=== PATIENT | female | born 1995 | race Caucasian/White ===

== ENCOUNTER 2020-04-05 16:38 | Inpatient (IN) | payer BC ==
[2020-04-05 17:38] VITALS: BMI 28.1
[2020-04-05] MEDS ORDERED: MAGNESIUM HYDROX 2400MG/30ML ORAL SUSPENSION 30 ML CUP PO PRN (21:36)
[2020-04-05] MEDS ORDERED: IBUPROFEN 400 MG TABLET (FP) PO PRN (21:36)
[2020-04-05] MEDS ORDERED: BISMUTH SUBSALICYLATE 524 MG/30 ML UD PO PRN (21:36)
[2020-04-05] MEDS ORDERED: MAGNESIUM CITRATE 300 ML BOTTLE PO PRN (21:36)
[2020-04-05] MEDS ORDERED: ONDANSETRON *ODT* 4 MG TABLET SL PRN (21:36)
[2020-04-05] MEDS ORDERED: ACETAMINOPHEN 325 MG TABLET (FP) PO PRN ×2 (21:36)
[2020-04-05] MEDS ORDERED: MAG HYDROX/AL HYDROX/SIMETH 30 ML UNIT-DOSE CUP PO PRN (21:36)
[2020-04-05] MEDS ORDERED: chlordiazePOXIDE HCL 25 MG CAPSULE PO PRN (21:36)
[2020-04-05] MEDS ORDERED: MENTHOL/PHENOL 1 EACH UD MM PRN (21:36)
[2020-04-05] MEDS ORDERED: MELATONIN 5 MG TABLETS PO SCH (22:00)
[2020-04-05] MEDS: THIAMINE HCL 100 MG TABLET (FP) PO SCH (23:23)
[2020-04-05] MEDS: chlordiazePOXIDE HCL 25 MG CAPSULE PO SCH (23:23)
[2020-04-06] MEDS: chlordiazePOXIDE HCL 25 MG CAPSULE PO SCH ×4 (06:22→22:28)
[2020-04-06] MEDS: NICOTINE POLACRILEX 2 MG GUM BUC PRN ×3 (06:24→17:04)
[2020-04-06] MEDS: NICOTINE 21 MG/24 HOURS TOPICAL PATCH TD SCH (10:18)
[2020-04-06] MEDS: PRENATAL VITAMINS W/ FOLIC ACID TABLET (FP) PO SCH (10:18)
[2020-04-06 12:02] LABS: HEMATOCRIT 40.3 % (32.4-45.2); HEMOGLOBIN 13.5 GM/dL (10.7-15.3); MCH 29.5 pg (25.7-33.7); MCHC 33.5 g/dl (32.0-36.0); MEAN PLT VOLUME 8.5 fl (7.5-11.1); PLATELET COUNT 294 K/MM3 (134-434); RBC 4.58 M/mm3 (3.60-5.2); RDW 13.1 % (11.6-15.6); WHITE BLOOD COUNT 7.4 K/mm3 (4.0-10.0)
[2020-04-06] MEDS: DULoxetine HCL 60 MG CAPSULE.DR PO SCH (12:04)
[2020-04-06 12:14] LABS: ALBUMIN 3.8 g/dl (3.4-5.0); BLOOD UREA NITROGEN 15.3 mg/dL (7-18); CALCIUM 8.9 mg/dL (8.5-10.1)
[2020-04-06 12:17] LABS: CREATININE 0.9 mg/dL (0.55-1.3)
[2020-04-06 12:19] LABS: BILIRUBIN,TOTAL 1.4 mg/dL (0.2-1); TOT PROT 6.9 g/dl (6.4-8.2)
[2020-04-06] MEDS: GABAPENTIN 100 MG CAPSULE PO SCH ×2 (13:08→22:27)
[2020-04-06] MEDS ORDERED: MASKS NR ONE (16:51)
[2020-04-06] MEDS ORDERED: QUEtiapine FUMARATE 100 MG TABLET (FP) PO SCH (22:00)
[2020-04-06] MEDS: THIAMINE HCL 100 MG TABLET (FP) PO SCH (22:27)
[2020-04-06] MEDS: MIRTAZAPINE 30 MG TABLET PO SCH (22:27)
[2020-04-06] MEDS: QUEtiapine FUMARATE 50 MG TABLET PO PRN (22:30)
[2020-04-07] MEDS: GABAPENTIN 100 MG CAPSULE PO SCH ×3 (05:57→22:05)
[2020-04-07] MEDS: chlordiazePOXIDE HCL 25 MG CAPSULE PO SCH ×4 (05:57→22:04)
[2020-04-07] MEDS: NICOTINE POLACRILEX 2 MG GUM BUC PRN ×3 (08:40→14:22)
[2020-04-07] MEDS: METHOCARBAMOL 500 MG TABLET PO PRN ×2 (10:23→17:39)
[2020-04-07] MEDS: PRENATAL VITAMINS W/ FOLIC ACID TABLET (FP) PO SCH (10:24)
[2020-04-07] MEDS: NICOTINE 21 MG/24 HOURS TOPICAL PATCH TD SCH (10:24)
[2020-04-07] MEDS: DULoxetine HCL 60 MG CAPSULE.DR PO SCH (10:24)
[2020-04-07] MEDS: MIRTAZAPINE 30 MG TABLET PO SCH (22:04)
[2020-04-07] MEDS: THIAMINE HCL 100 MG TABLET (FP) PO SCH (22:05)
[2020-04-07] MEDS: QUEtiapine FUMARATE 50 MG TABLET PO PRN (22:09)
[2020-04-08] MEDS ORDERED: chlordiazePOXIDE HCL 10 MG CAPSULE PO PRN
[2020-04-08] MEDS: GABAPENTIN 100 MG CAPSULE PO SCH ×3 (06:13→22:08)
[2020-04-08] MEDS: chlordiazePOXIDE HCL 10 MG CAPSULE PO SCH ×4 (06:13→22:05)
[2020-04-08] MEDS: NICOTINE POLACRILEX 2 MG GUM BUC PRN ×2 (06:16→10:12)
[2020-04-08] MEDS: DULoxetine HCL 60 MG CAPSULE.DR PO SCH (10:11)
[2020-04-08] MEDS: NICOTINE 21 MG/24 HOURS TOPICAL PATCH TD SCH (10:12)
[2020-04-08] MEDS: PRENATAL VITAMINS W/ FOLIC ACID TABLET (FP) PO SCH (11:11)
[2020-04-08] MEDS: NICOTINE POLACRILEX 4 MG GUM BUC PRN ×3 (13:06→17:51)
[2020-04-08] MEDS: METHOCARBAMOL 500 MG TABLET PO PRN ×2 (13:36→19:18)
[2020-04-08] MEDS: QUEtiapine FUMARATE 50 MG TABLET PO PRN (22:04)
[2020-04-08] MEDS: THIAMINE HCL 100 MG TABLET (FP) PO SCH (22:04)
[2020-04-08] MEDS: MIRTAZAPINE 30 MG TABLET PO SCH (22:04)
[2020-04-09] MEDS: METHOCARBAMOL 500 MG TABLET PO PRN ×2 (04:15→12:24)
[2020-04-09] MEDS: chlordiazePOXIDE HCL 10 MG CAPSULE PO SCH ×2 (05:41→17:57)
[2020-04-09] MEDS: GABAPENTIN 100 MG CAPSULE PO SCH (05:41)
[2020-04-09] MEDS: NICOTINE POLACRILEX 4 MG GUM BUC PRN ×6 (05:43→21:26)
[2020-04-09] MEDS ORDERED: MIRTAZAPINE 30 MG TABLET PO SCH (09:18)
[2020-04-09] MEDS ORDERED: DULoxetine HCL 20 MG CAPSULE.DR PO SCH (10:00)
[2020-04-09] MEDS: NICOTINE 21 MG/24 HOURS TOPICAL PATCH TD SCH (10:13)
[2020-04-09] MEDS: PRENATAL VITAMINS W/ FOLIC ACID TABLET (FP) PO SCH (10:13)
[2020-04-09] MEDS: DULoxetine HCL 60 MG CAPSULE.DR PO SCH (14:45)
[2020-04-09] MEDS ORDERED: QUEtiapine FUMARATE 50 MG TABLET PO SCH (22:00)
[2020-04-09] MEDS: THIAMINE HCL 100 MG TABLET (FP) PO SCH (22:33)
[2020-04-10] MEDS ORDERED: chlordiazePOXIDE HCL 10 MG CAPSULE PO ONE (05:00)
[2020-04-10] MEDS: NICOTINE POLACRILEX 4 MG GUM BUC PRN (05:54)
[2020-04-10 09:15] VITALS: BP 142/88; PULSE 95; TEMP 97.7
[2020-04-10] MEDS ORDERED: PETROLATUM, WHITE 30 GM TUBE TP SCH (10:00)
[2020-04-10] MEDS: DULoxetine HCL 60 MG CAPSULE.DR PO SCH (10:13)
[2020-04-10] MEDS: PRENATAL VITAMINS W/ FOLIC ACID TABLET (FP) PO SCH (10:14)
[2020-04-10] MEDS: METHOCARBAMOL 500 MG TABLET PO PRN (10:14)
== END 2020-04-10 13:30 | disposition home or self-care (01) | DRG 775 ==
LOC: YASAS 16:38 → Y6N 23:24
PROVIDERS: ADMIT Allergy & Immunology; ATTEND Allergy & Immunology
PROC: HZ2ZZZZ Detoxification Services for Substance Abuse Treatment (ICD-10-PCS; principal; 2020-04-05)
DX: F10.230 Alcohol dependence with withdrawal, uncomplicated (principal); F13.20 Sedative, hypnotic or anxiolytic dependence, uncomplicated; F12.20 Cannabis dependence, uncomplicated; F17.210 Nicotine dependence, cigarettes, uncomplicated; F19.280 Other psychoactive substance dependence with psychoactive substance-induced anxiety disorder; F19.282 Other psychoactive substance dependence with psychoactive substance-induced sleep disorder; F19.24 Other psychoactive substance dependence with psychoactive substance-induced mood disorder; F32.9 Major depressive disorder, single episode, unspecified; F41.9 Anxiety disorder, unspecified; E80.6 Other disorders of bilirubin metabolism
CPT/HCPCS: 36415; 80053; 81025; 85027; 86780; 93005; 93010; C9803; U0003